=== PATIENT | female | born 1950 | race Caucasian/White ===

== ENCOUNTER → 2019-12-16 19:33 | Outpatient (ROUT) | payer MEDICARE, SELFPAY ==
[2019-12-16 20:19] LABS: Alanine Aminotransferase 21 IU/L (<35); Cholesterol 175 mg/dL (140-199); HDL Cholesterol 66 mg/dL (40-60); LDL Cholesterol Calculated 76 mg/dL (<100); Triglycerides 164 mg/dL (35-150)
== END ==
PROVIDERS: Visit Provider Internal Medicine
DX: E78.5 Hyperlipidemia, unspecified (principal)
CPT/HCPCS: 80061; 84460

== ENCOUNTER → 2020-01-22 12:21 | Outpatient (CLI) | payer MEDICARE, SELFPAY ==
--- NOTE | 2020-01-22 | DI.MRI.S_ITS ---
PROCEDURE: MR FOOT RT WO CON INDICATIONS: Post-traumatic osteoarthritis TECHNIQUE: Noncontrast sagittal T1 spin echo and T2 fast spin echo with fat saturation, long-axis T1 spin echo and T2 fast spin echo with fat saturation, short-axis T1 spin echo and T2 fast spin echo with fat saturation through the forefoot. COMPARISON: None. FINDINGS: Image quality: Excellent. Bones and joints: There is marrow edema present within the 3rd and 4th proximal metatarsal shafts. There is severe lesser tarsal metatarsal joint degeneration. Severe 1st MTP joint degeneration. Prominent dorsal osteophyte formation is present. There is associated subchondral marrow edema and joint effusion. Marrow signal intensity change in T2 hyperintensity within the medial and lateral hallux sesamoids. Questionable fracture line in both sesamoid seen on image 24/9, however this could be related to chronic bipartite appearance and recommend correlation to clinical history. Soft tissues: The visualized plantar foot muscles demonstrate normal signal and bulk. Visualized flexor and extensor tendons appear intact, without tenosynovitis. The distal insertions of the peroneus brevis and longus tendons appear intact. The principal Lisfranc ligament appears intact. Fluid between the 1st and 2nd metatarsal heads is present. IMPRESSION: Severe 1st MTP joint degeneration with prominent dorsal bulky osteophyte formation. This raises the possibility of hallux rigidus. Please correlate clinically to exam findings Mild marrow signal changes involving the medial and lateral hallux sesamoids suggesting nonspecific sesamoiditis (versus less likely fracture. Please see comment above). 1st-2nd intermetatarsal bursitis Marrow edema within the 3rd and 4th proximal metatarsal shafts, without discrete low signal fracture line. This could be due to early stress reaction. Please correlate clinically Elsewhere, diffuse degenerative changes in particular at the lesser tarsometatarsal joints. Dictated by: Rogerio Guidry M.D. on 01/24/2020 at 11:37 Approved by: Rogerio Guidry M.D. on 01/24/2020 at 12:06
== END ==
PROVIDERS: PCP Internal Medicine; Referring Provider Internal Medicine; Visit Provider Internal Medicine
DX: M19.171 Post-traumatic osteoarthritis, right ankle and foot (principal); M77.51 Other enthesopathy of right foot and ankle
CPT/HCPCS: 73718

== ENCOUNTER 2020-09-03 02:12 | Observation (INO) | payer MEDICARE, SELFPAY ==
[2020-09-03] VITALS (7 sets, daily range): BP systolic 110–152; BP diastolic 70–79; PULSE 59–71; RESP 14–18; TEMP 36.1–36.3; O2SAT 96–99; BMI 23.1
--- NOTE | 2020-09-03 02:23 | ED_ITS ---
HPI - General Adult General Chief complaint: Allergic Reaction Stated complaint: facial swelling Time Seen by Provider: 09/03/20 02:14 Source: patient Mode of arrival: EMS History of Present Illness HPI narrative: Patient is a 70-year-old female who arrives by EMS for evaluation of swelling of her lips. She arrived by BLS. She states that at approximately midnight she started noticing swelling on the right side of her cheek and in her upper lip and during that time it is just progressively worsened to include both of her lips. She is not on lisinopril. Has never had this happen to her in the past. She states she has had reactions to insect stings and bites in the past but does not remember being exposed anything like that currently. No problems swallowing. Her tongue is unremarkable. She is able to breathe without problem s. No rashes anywhere. Related Data Home Medications Medication Instructions Recorded Confirmed Align See Rx Instructions .ROUTE .COMPLEX 09/03/20 09/03/20 B-complex with vitamin C See Rx Instructions .ROUTE .COMPLEX 09/03/20 09/03/20 Bifidobacterium infantis 4 mg See Rx Instructions .ROUTE .COMPLEX 09/03/20 09/03/20 capsule (Align) Calcium + Vitamin D See Rx Instructions .ROUTE .COMPLEX 09/03/20 09/03/20 Women's Daily Multivitamin See Rx Instructions .ROUTE .COMPLEX 09/03/20 09/03/20 bupropion HCl 100 mg tablet,12 hr 100 mg PO BID 09/03/20 09/03/20 sustained-release co [id number] oil-omega 3-E See Rx Instructions .ROUTE .COMPLEX 09/03/20 09/03/20 krill [id number] See Rx Instructions .ROUTE .COMPLEX 09/03/20 09/03/20 levothyroxine 88 mcg tablet 88 mcg DAILY 09/03/20 09/03/20 rosuvastatin 5 mg tablet 2.5 mg DAILY 09/03/20 09/03/20 Allergies Allergy/AdvReac Type Severity Reaction Status Date / Time lactose AdvReac Mild Verified 09/03/20 02:42 Review of Systems Constitutional Constitutional: Denies fatigue and Denies fever(s) Eyes Eyes: Denies itchy eyes Comments: No vision problems with swelling around her eyes ENT Ears, Nose, Mouth, and Throat: Reports as per HPI, Reports lip swelling, Denies throat swelling and Denies tongue swelling Cardiovascular Comments: No chest pain Respiratory Respiratory: Denies wheezing Comments: No shortness of breath Gastrointestinal Comments: No abdominal pain nausea vomiting Musculoskeletal Musculoskeletal: Reports system reviewed and no additional complaints, except as documented Integumentary/Breasts Comments: No rashes Neurologic Neurologic: Reports system reviewed and no additional complaints, except as documented Psychiatric Psychiatric: Reports system reviewed and no additional complaints, except as documented Endocrine Endocrine: Denies fatigue Hematologic/Lymphatic On Anticoagulants: No Allergic/Immunologic Allergic/Immunologic: Denies urticaria, Denies itchy eyes, Reports lip swelling, Denies seasonal rhinorrhea, Denies throat swelling, Denies tongue swelling and Denies wheezing Patient History Medical History Hypothyroid Surgical History (Updated 09/03/20 @ 05:34 by NIA Lopez) History of esophageal hernia repair Social History Smoking Status: Never smoker Exam Initial Vital Signs Initial Vital Signs: Vital Signs Temperature 97 F L 09/03/20 02:14 Pulse Rate 71 09/03/20 02:14 Respiratory Rate 18 09/03/20 02:14 Blood Pressure 152/74 H 09/03/20 02:14 Pulse Oximetry 98 09/03/20 02:14 Const General: cooperative, healthy appearing, comfortable and well developed [facility] Head: normal to inspection Ears: hearing grossly normal bilaterally Nose: external nose normal Face and sinus: no erythema and edema bilaterally upper lip and lower lip Mouth: oral mucosae normal, tongue normal and moist mucous membranes Teeth and gingiva: dentition normal Throat: posterior oropharynx normal Eyes General: appearance normal, both eyes and all related structures Neck Neck: normal visual inspection Resp Effort & Inspection: normal respiratory effort Auscultation: clear to auscultation bilaterally Cardio Rate: regular rate Rhythm: regular rhythm GI Inspection: normal to inspection Back/Spine/Pelvis Back: normal to inspection Skin General: no rashes or lesions noted Neuro General: patient alert, patient awake and patient oriented x3 Extrem General: normal to inspection Psych Appearance: grossly normal and well kempt Course Orders Ordered: ED Orders 09/03/20 02:25 Basic Metabolic Panel Stat Complete Blood Count AUTO DIFF Stat 09/03/20 02:35 COVID19 - ADMIT (DIETETIC ASSISTANT swab/PCR) Stat Acetaminophen (Acetaminophen 325 Mg Tablet) 650 mg PO Q6HR PRN PRN Reason: Fever/Mild Pain (1-3) Diphenhydramine HCl (Diphenhydramine 50 Mg/Ml Vial) 50 mg IV Q6HR PRN PRN Reason: Angioedema Diphenhydramine HCl (Diphenhydramine 25 Mg Tablet) 50 mg PO Q6HR PRN PRN Reason: Itching Famotidine (Famotidine 20 Mg/2 Ml Vial) 20 mg IV NOW [facility] Last Admin: 09/03/20 02:29 Dose: 20 mg Documented by: REY Sodium Chloride (Normal Saline 0.9%) 1,000 mls @ 125 mls/hr IV CONT [facility] Last Admin: 09/03/20 02:29 Dose: 125 mls/hr Documented by: REY Naloxone HCl (Naloxone 0.4 Mg/Ml Vial) 0.2 mg IV Q2MIN PRN PRN Reason: Opiate Reversal Prednisone (Prednisone 20 Mg Tablet) 60 mg PO DAILY ALAN Discontinued Medications Diphenhydramine HCl (Diphenhydramine 50 Mg/Ml Vial) 25 mg IV NOW ONE Stop: 09/03/20 02:15 Last Admin: 09/03/20 02:29 Dose: 25 mg Documented by: REY Methylprednisolone (Methylprednisolone 125 Mg/2 Ml Vial) 125 mg IV NOW ONE Stop: 09/03/20 02:15 Last Admin: 09/03/20 02:29 Dose: 125 mg Documented by: REY Vital Signs Vital signs: Vital Signs - 8 hr 09/03/20 02:14 09/03/20 03:04 09/03/20 03:30 Temperature 97 F L Pulse Rate 71 61 61 Respiratory Rate 18 Blood Pressure 152/74 H Pulse Oximetry 98 99 99 Medical Decision Making Lab Data Lab results reviewed: Yes I reviewed the patient's lab results. Result diagrams: 09/03/20 02:25 09/03/20 02:25 Labs: Lab Results 09/03/20 09/03/20 09/03/20 Range/Units 02:25 02:25 02:35 WBC 5.8 (4.5-11.0) X10^3/uL RBC 4.20 (4.0-5.2) X10^6/uL Hgb 13.0 (12.0-16.0) g/dL Hct 39.4 (36-46) % MCV 93.9 (80-100) fL MCH 31.0 (26-34) PG MCHC 33.0 (30-36) % RDW 13.3 (11.6-14.8) % Plt Count 212 (150-400) X10^3/uL Neut % (Auto) 40.7 L (50-75) % Lymph % (Auto) 42.4 H (25-40) % [place] % (Auto) 10.3 (3-14) % Eos % (Auto) 5.6 H (2-4) % Baso % (Auto) 1.0 (0-2) % Neut # (Auto) 2400 (4301-0490) /uL Lymph # (Auto) 2500 (4484-8508) /uL [place] # (Auto) 600 (0-900) /uL Eos # (Auto) 300 (0-450) /uL Baso # (Auto) 100 (0-100) /uL Sodium 140 (137-145) mmol/L Potassium 4.2 (3.4-5.1) mmol/L Chloride 106 (98-107) mmol/L Carbon Dioxide 28 (22-32) mmol/L BUN 24 H (7-17) mg/dL Creatinine 0.80 (0.52-1.04) mg/dL Estimated GFR > 60.0 (>60) mL/min BUN/Creatinine Ratio 30.0 H (6-22) Glucose 97 (80-110) mg/dL Calcium 10.2 (8.4-10.2) mg/dL SARS-CoV-2 (PCR) Negative (Negative) MDM Narrative Medical decision making narrative: She does have swelling in both her upper and lower lips. It does not extend any further back into the oral cavity from that point. No problems control leg her secretions. Is talking without problems. Breathing without problems. Low suspicion for cellulitis. She was given Benadryl and Solu-Medrol in famotidine. Minimal if any improvement with these medications. During her observation here in the emergency department symptoms have not worsened. Given the nature of the angioedema patient does require admission to the hospital for an airway watch. I did discuss this with the patient she expressed understanding. Discussed the case with JODI guidry who will admit for further evaluation treatment. Discharge Plan Departure Patient Disposition: Admitted as Observation Clinical Impression: Angioedema Admit Date/Time: 09/03/20 03:55 Admit Provider: Gina Guidry
[2020-09-03] MEDS: diphenhydrAMINE 50 MG/ML VIAL 25 MG IV (02:29)
[2020-09-03] MEDS: FAMOTIDINE 20 MG/2 ML VIAL IV (02:29)
[2020-09-03] MEDS: SODIUM CHLORIDE 0.9% 1,000 ML 125 ML IV ×2 (02:29→05:38)
[2020-09-03] MEDS: methylPREDNISolone 125 MG/2 ML VIAL IV (02:29)
[2020-09-03 02:31] LABS: Add Manual Diff / Slide Review NO; Basophils Absolute Auto 100 /uL (0-100); Eosinophils Absolute Auto 300 /uL (0-450); Eosinophils Percent Auto 5.6 % (2-4); Hematocrit 39.4 % (36-46); Lymphocytes Absolute Auto 2500 /uL (1100-4500); Lymphocytes Percent Auto 42.4 % (25-40); Mean Corpuscular Volume 93.9 fL (80-100); Monocytes Absolute Auto 600 /uL (0-900); Monocytes Percent Auto 10.3 % (3-14); Neutrophils Absolute Auto 2400 /uL (1500-7000); Neutrophils Percent Auto 40.7 % (50-75); Platelet Count 212 X10^3/uL (150-400); Red Cell Distribution Width 13.3 % (11.6-14.8); White Blood Cell Count 5.8 X10^3/uL (4.5-11.0)
[2020-09-03 02:39] LABS: Blood Urea Nitrogen 24 mg/dL (7-17); Calcium 10.2 mg/dL (8.4-10.2); Carbon Dioxide 28 mmol/L (22-32); Chloride 106 mmol/L (98-107); Estimated Glomerular Filt Rate > 60.0 mL/min (>60); Glucose 97 mg/dL (80-110); HEMOLYSIS < 15 (0-50); Potassium 4.2 mmol/L (3.4-5.1); Sodium 140 mmol/L (137-145)
[2020-09-03 03:34] LABS: COVID19 - ADMIT (NP swab/PCR) Negative (Negative)
--- NOTE | 2020-09-03 05:16 | P.HP_ITS ---
History of Present Illness History of Present Illness Date Patient Seen: 09/03/20 Time Patient Seen: 05:16 Chief complaint: facial swelling Narrative: Bibi Arboleda is a 70 y.o. female with controlled hyperlipidemia and hypothyroidism was in her usual state of health when she was sitting down and eating pistacio nuts. She went into the bathroom to brush her teeth and noticed that her cheeks started to swell up followed by her lips. She does not have any atopic allergies, nor is she taking an malena-inhibitor. She then noticed that her lips began to feel funny and when she felt them with her hand realized they were swelling up as well. She called 911 who brought her to the ED. She denies eating anything different, though she had only been eating pistacios for 2 weeks. Denied taking malena inhibitors, new soaps or laundry detergents, or insect bite or poisonous plant exposures. Denies itching or involvement of other parts of her body. In the ED, she was administered IV benadryl, prevacid, and solumedrol. She was requested for obs as her swelling was not decreasing as quickly as expected. She is afebrile, blood pressure is 152/74, heart rate 61, respiratory rate 18, oxygen saturation 99% on room air, she weighs 69 kg with a BMI of 23. WBC is un remarkable, she does have elevated eosinophils of 5.6%, BMP is also unremarkable, COVID-19 PCR is negative. Patient History Medical History (Updated 09/03/20 @ 05:43 by NIA Lopez) Anxiety History of esophageal stricture HLD (hyperlipidemia) Hypothyroid Surgical History (Updated 09/03/20 @ 05:34 by NIA Lopez) History of esophageal hernia repair Comment: Esophogeal stricture release Family & Social History Family History (Updated 09/03/20 @ 05:44 by NIA Lopez) Mother Myocardial infarct Father Surgical complication Safety & Behavioral: Feels Safe in Current Yes Environment Been Physically Hurt or No Threatened By a Person Tobacco & Substance use: Smoking Status Never smoker alcohol intake frequency 0-2 drinks per day Substance Use Type does not use Meds Home Medications and Allergies Home Medications Medication Instructions Recorded Confirmed Type Align See Rx Instructions .ROUTE .COMPLEX 09/03/20 09/03/20 History B-complex with vitamin C See Rx Instructions .ROUTE .COMPLEX 09/03/20 09/03/20 History Bifidobacterium infantis 4 mg See Rx Instructions .ROUTE .COMPLEX 09/03/20 09/03/20 History capsule (Align) Calcium + Vitamin D See Rx Instructions .ROUTE .COMPLEX 09/03/20 09/03/20 History Women's Daily Multivitamin See Rx Instructions .ROUTE .COMPLEX 09/03/20 09/03/20 History bupropion HCl 100 mg tablet,12 hr 100 mg PO BID 09/03/20 09/03/20 History sustained-release co [id number] oil-omega 3-E See Rx Instructions .ROUTE .COMPLEX 09/03/20 09/03/20 History krill [id number] See Rx Instructions .ROUTE .COMPLEX 09/03/20 09/03/20 History levothyroxine 88 mcg tablet 88 mcg DAILY 09/03/20 09/03/20 History rosuvastatin 5 mg tablet 2.5 mg DAILY 09/03/20 09/03/20 History Allergies Allergy/AdvReac Type Severity Reaction Status Date / Time lactose AdvReac Mild Verified 09/03/20 02:42 Review of Systems Review of Systems ROS: Yes All systems reviewed with the patient and are negative except as otherwise documented Exam Vital Signs (past 8 hours): - 09/03/20 02:14 09/03/20 03:04 09/03/20 03:30 Temperature 97 F L Pulse Rate 71 61 61 Respiratory Rate 18 Blood Pressure 152/74 H Pulse Oximetry 98 99 99 Oxygen Delivery Method Room Air Narrative Exam Narrative: Gen: Alert, oriented, well-developed 70 y.o. female, NAD HEENT: normocephalic, atraumatic, left cheek is swollen, conjunctiva clear, sclera non-icteric, significant swelling of the upper and lower lips, oral mucosa pink and moist Neck: supple, full ROM, no JVD, trachea is midline Resp: Lungs CTA, non-labored breathing CV: RRR, no murmur or rubs Abd: soft, non-tender, normoactive BTs Skin: no lesions or rashes, dry and intact Neuro: Alert and oriented X 4 w/no focal deficits. Speech clear and coherent. Extremities: moves all 4 extremities, is ambulatory, negative Alexander?s sign Psyche: normal mood and affect Objective Labs Result Diagrams: 09/03/20 02:25 09/03/20 02:25 Labs: Laboratory Results - last 24 hr 09/03/20 09/03/20 09/03/20 02:25 02:25 02:35 WBC 5.8 RBC 4.20 Hgb 13.0 Hct 39.4 MCV 93.9 MCH 31.0 MCHC 33.0 RDW 13.3 Plt Count 212 Neut % (Auto) 40.7 L Lymph % (Auto) 42.4 H [place] % (Auto) 10.3 Eos % (Auto) 5.6 H Baso % (Auto) 1.0 Neut # (Auto) 2400 Lymph # (Auto) 2500 [place] # (Auto) 600 Eos # (Auto) 300 Baso # (Auto) 100 Sodium 140 Potassium 4.2 Chloride 106 Carbon Dioxide 28 BUN 24 H Creatinine 0.80 Estimated GFR > 60.0 BUN/Creatinine Ratio 30.0 H Glucose 97 Calcium 10.2 SARS-CoV-2 (PCR) Negative Assessment & Plan Assessment & Plan narrative: Ann Marie Arboleda will be observed for continued swelling associated with angioedema. 1. Angioedema, acute and present on admission * IV and PO benadryl 50 mg q 6 hours as needed for swelling * prednisone 60 mg daily with tapor anticipated with discharge 2. Hypothyroidism, chronic * Continue home dose of levothyroxine 88 mcg daily 3. Hyperlipidemia, chronic * Continue home dose of rosuvastatin 2.5 mg po daily 4. Anxiety, chronic * Continue home dose of bupropion, 100 mg po bid VTE Prophylaxis: Wells risk score 0 X Bilateral SCDs Patient is placed into observation as her stay is not expected to exceed 2 midnights. FEN: IV fluids: NS at 100 ml/hour, diet: heart healthy, labs: CBC, BMP, Mag Code status: DNR, okay to intubate. This was discussed as the angioedema may present a threat to her airway if it progresses. The patient who identifies friend Gris Robles as her surrogate and POA. I have utilized all available resources (patient, family member, internal and external medical records) at the time of admission to identify the patient?s current home medications that should be continued or held. COVID-19 COVID-19 status: Negative Result date/Date tested (Pos, Neg/Pending): 07/25/21 Scores Wells' Criteria for PE Clinical signs and symptoms of DVT: No PE is #1 Dx or equally likely: No Heart rate > 100: No Immobilization at least 3 days or surg in previous 4 weeks: No History of PE or DVT: No Hemoptysis: No Malignancy w/Treatment within 6 months or palliative: No Wells' PE Score total: 0 Quality VTE Deep Vein Thrombosis/Pulmonary Embolism Present on Admission: No MIPS - Admit I confirm the patient?s Advance Care Plan is present, Code status is documented, Surrogate decision maker is in patient?s record [If Yes, STOP here]: Yes
[2020-09-03] MEDS: LEVOTHYROXINE 88 MCG TABLET PO (06:20)
[2020-09-03] MEDS: diphenhydrAMINE 25 MG TABLET 50 MG PO (08:40)
[2020-09-03] MEDS: predniSONE 20 MG TABLET 60 MG PO (08:40)
[2020-09-03] MEDS: buPROPion SR 100 MG TAB PO (08:40)
--- NOTE | 2020-09-03 09:17 | P.DS_ITS ---
History of Present Illness History of Present Illness Date Patient Seen: 09/03/20 Time Patient Seen: 09:18 Chief complaint: facial swelling Narrative: Per Gina Guidry, ANRP: Bibi Arboleda is a 70 y.o. female with controlled hyperlipidemia and hypothyroidism was in her usual state of health when she was sitting down and eating pistacio nuts. She went into the bathroom to brush her teeth and noticed that her cheeks started to swell up followed by her lips. She does not have any atopic allergies, nor is she taking an malena-inhibitor. She then noticed that her lips began to feel funny and when she felt them with her hand realized they were swelling up as well. She called 911 who brought her to the ED. She denies eating anything different, though she had only been eating pistacios for 2 weeks. Denied taking malena inhibitors, new soaps or laundry detergents, or insect bite or poisonous plant exposures. Denies itching or involvement of other parts of her body. In the ED, she was administered IV benadryl, prevacid, and solumedrol. She was requested for obs as her swelling was not decreasing as quickly as expected. She is afebrile, blood pressure is 152/74, heart rate 61, respiratory rate 18, oxygen saturation 99% on room air, she weighs 69 kg with a BMI of 23. WBC is unremarkable, she does have elevated eosinophils of 5.6%, BMP is also unremarkable, COVID-19 PCR is negative. Discharge Providers Provider Date of admission: 09/03/20 03:55 Discharge Date: 09/03/20 Primary care physician: Kimi Burnette MD Discharge provider: Wagner Simpson DO Summary Hospital Course Discharge Diagnosis: 1. Angioedema, acute and present on admission 2. Hypothyroidism, chronic 3. Hyperlipidemia, chronic 4. Anxiety, chronic Hospital Course: This is a 70-year-old female with a past medical history of hyperlipidemia, hypothyroidism, and anxiety who was admitted with angioedema and significant swelling of her face. She was monitored overnight for evidence of progression given concern for her airway. The following morning after admission the patient's lip and facial swelling had markedly improved after initiation of steroids, epinephrine given initially, and Benadryl. She was able to tolerate a diet without any difficulty swallowing the following morning as well. She will be discharged on a short steroid taper, and it is unclear what exactly caused her angioedema but I would recommend follow-up with an customer quality engineer as an outpatient. She was given a prescription for an epi-pen as well in the event that this may be an allergic reaction. Exam Vital Signs (past 8 hours): - 09/03/20 02:14 09/03/20 03:04 09/03/20 03:30 Temperature 97 F L Pulse Rate 71 61 61 Respiratory Rate 18 Blood Pressure 152/74 H Pulse Oximetry 98 99 99 09/03/20 04:10 09/03/20 07:26 Temperature 97.0 F L Pulse Rate 62 Respiratory Rate 16 Blood Pressure 141/79 H Pulse Oximetry 97 97 Oxygen Delivery Method Room Air Oxygen Flow Rate 0 Narrative Exam Narrative: Gen: Alert, oriented, well-developed 70 y.o. female, NAD HEENT: normocephalic, atraumatic,improved lip and facial swelling, conjunctiva clear, sclera non-icteric, oral mucosa pink and moist Neck: supple, full ROM, no JVD, trachea is midline Resp: Lungs CTA, non-labored breathing CV: RRR, 3/6 systolic murmur no rubs or gallops. Abd: soft, non-tender, normoactive BTs Skin: no lesions or rashes, dry and intact Neuro: Alert and oriented X 4 w/no focal deficits. Speech clear and coherent. Extremities: moves all 4 extremities, is ambulatory Psyche: normal mood and affect Objective Labs Result Diagrams: 09/03/20 02:25 09/03/20 02:25 Labs: Laboratory Results - last 24 hr 09/03/20 09/03/20 09/03/20 02:25 02:25 02:35 WBC 5.8 RBC 4.20 Hgb 13.0 Hct 39.4 MCV 93.9 MCH 31.0 MCHC 33.0 RDW 13.3 Plt Count 212 Neut % (Auto) 40.7 L Lymph % (Auto) 42.4 H [place] % (Auto) 10.3 Eos % (Auto) 5.6 H Baso % (Auto) 1.0 Neut # (Auto) 2400 Lymph # (Auto) 2500 [place] # (Auto) 600 Eos # (Auto) 300 Baso # (Auto) 100 Sodium 140 Potassium 4.2 Chloride 106 Carbon Dioxide 28 BUN 24 H Creatinine 0.80 Estimated GFR > 60.0 BUN/Creatinine Ratio 30.0 H Glucose 97 Calcium 10.2 SARS-CoV-2 (PCR) Negative PFSH Medical History (Updated 09/03/20 @ 05:43 by NIA Lopez) Anxiety History of esophageal stricture HLD (hyperlipidemia) Hypothyroid Surgical History (Updated 09/03/20 @ 05:34 by NIA Lopez) History of esophageal hernia repair Family History (Updated 09/03/20 @ 05:44 by NIA Lopez) Mother Myocardial infarct Father Surgical complication Social History household members: friend(s) Smoking Status: Never smoker Discharge Plan Discharge Plan Patient Disposition: Home Provider Discharge Comment: You were admitted to the hospital with swelling of your face and lips. This improved with steroids, Benadryl, and antihistamines. Please keep Benadryl around at home, and this can be used if needed over the next few days. Please continue steroid taper which has been sent to the pharmacy. Please follow-up with her primary care provider in the next week or 2. I have also sent a prescription for an epipen if swelling happens again. Please take epipen if swelling recurs then call EMS. I would recommend follow up with an customer quality engineer as well. Discharge orders & Medications Prescriptions: New prednisone 10 mg tablet See Rx Instructions .ROUTE .COMPLEX Qty: 14 RF: 0 epinephrine 0.3 mg/0.3 mL auto-injector 0.3 mg IM Q5-15M PRN (Reason: anaphylaxis) Qty: 2 RF: 0 Continued bupropion HCl 100 mg tablet sustained-release 12 hr 100 mg PO BID RF: 0 levothyroxine 88 mcg tablet 88 mcg DAILY RF: 0 rosuvastatin 5 mg tablet 2.5 mg DAILY RF: 0 Align 4 mg Capsule See Rx Instructions .ROUTE .COMPLEX RF: 0 Women's Daily Multivitamin See Rx Instructions .ROUTE .COMPLEX RF: 0 co [id number] oil-omega 3-E See Rx Instructions .ROUTE .COMPLEX RF: 0 krill [id number]-epa See Rx Instructions .ROUTE .COMPLEX RF: 0 Align See Rx Instructions .ROUTE .COMPLEX RF: 0 Calcium + Vitamin D See Rx Instructions .ROUTE .COMPLEX RF: 0 B-complex with vitamin C See Rx Instructions .ROUTE .COMPLEX RF: 0 Follow up/Referrals: Kimi Burnette MD [Primary Care Provider] - Diet/Activity/Treatments Diet: Diet as Tolerated Activity: As tolerated Discharge Data Primary Care Provider: Kimi Burnette Attending Provider: Gina Guidry VTE Deep Vein Thrombosis/Pulmonary Embolism Present on Admission: No
--- NOTE | 2020-09-03 10:39 | PC.NURSE ---
Discharge note: Patient awake, alert, and pleasantly cooperative. 98% on RA, no difficulty swallowing, no drooling noted, speaking in full sentences. Lungs clear. Upper lip with minimal swelling, per patient it has significantly improved. Tolerated regular breakfast without any issues. Discharged home per MD order, discussed importance of F/U with PMD, new prescribed medications and safe use, signs of worsening symptoms. Patient verbalized understanding of instructions. Ambulating in room independently. Home via private vehicle accompanied by friend.
--- NOTE | 2020-09-03 13:25 | CM.DANOTE ---
DCP: assessment: note. Case received and discussed in Team Rounds. Dr. Simpson noted that pt admitted with angioedema with arrival early this morning 4AM. He said pt stable for d/c to home. Went after Rounds to check in with pt and she had aready completed the d/c process with KATIE Marie and had left for home. Payer: Medicare PCP Kimi Burnette Admission status: in review
== END 2020-09-03 11:00 | disposition home or self-care (01) ==
LOC: ED 03:35 → AC 03:55
PROVIDERS: Admitting Provider Nurse Practitioner Family; Emergency Provider Emergency Medicine; PCP Internal Medicine; Referring Provider Emergency Medicine; Visit Provider Nurse Practitioner Family
DX: T78.3XXA Angioneurotic edema, initial encounter (principal); E78.5 Hyperlipidemia, unspecified; E03.9 Hypothyroidism, unspecified; F41.9 Anxiety disorder, unspecified; Z20.822 Contact with and (suspected) exposure to COVID-19
CPT/HCPCS: 36415; 80048; 85025; 87635; 96361; 96374; 96375; 99284; C9803; G0378; J1200; J2930

== ENCOUNTER 2022-06-06 09:22 | Outpatient (CLI) | payer MEDICARE, SELFPAY ==
[2020-09-03 05:27] VITALS: BMI 23.1
--- NOTE | 2022-06-06 09:25 | DI.RAD.S_ITS ---
PROCEDURE: PAIN PERIPHERAL NRV BLK OTHER INDICATIONS: CLUNEAL NEURALGIA COMPARISON: None. FINDINGS: Fluoroscopic spot filming was performed to verify placement of needles for nerve injection, as labeled on the films. Contrast was injected. IMPRESSION: Fluoroscopic images for nerve block. Please see procedure note for full details. Dictated by: Anson Abdi M.D. on 06/06/2022 at 12:28 Approved by: Anson Abdi M.D. on 06/06/2022 at 12:29
[2022-06-06 09:30] VITALS: BP 160/72; PULSE 61; RESP 18; TEMP 36.2; O2SAT 98
--- NOTE | 2022-06-06 09:32 | P.PCN_ITS ---
Date/Time/Diagnoses Date of procedure: 06/06/22 Time of procedure: 10:00 Procedure Notes Physician: Levon Gardner Total Fluoroscopy time (seconds): 8 Total sedation minutes: 0 Procedure in detail & Post-procedure care: Left Cluneal Nerve Injection Indications: Bibi is presenting for treatment of cluneal neuralgia with low back and buttock pain. Preoperative diagnosis: Left cluneal neuralgia Postoperative diagnosis: Same Focused Examination: Ax3 Mood and affect are normal Vital Signs: VSS ASA: 2 Consent: Following review of allergies and potential side effects/complications, including, but not necessarily limited to, infection, allergic reaction, local tissue breakdown, stroke, temporary or permanent nerve injury, paralysis, and possible , the patient indicated that they understood and agreed to proceed.? An informed consent document was signed by the patient, witnessed by a nurse and placed in the patient's chart.? Additionally, other treatment options including medications and physical therapy were reviewed with the patient. All questions were answered. Site was then marked. Anesthesia: Local Position: Prone Monitoring: NIBP, Pulse oximetry, 3 lead EKG Needle used: 25 gauge, 3.5 inch spinal needle x3 Contrast: Isovue 300-M 3mL Injectate: Depomedrol 40mg with 5 mL 0.5% Bupivacaine - 2 mL per injection site Technique: The skin was prepped with chloraprep and then draped in a sterile fashion. Time out was performed as per protocol. Oxygen applied via NC. Midline of the spine was identified using fluoroscopy. The skin was measured 8 cm from midline and sterile roxi placed on the skin delineating the superior aspect of the iliac crest on the left. Two moon were subsequently made 2 cm medial and 2 cm lateral for a total of 3 target sites. Skin and subcutaneous structures of the needle entry sites were then infiltrated with 5 mL of lidocaine 1%. Under AP and contralateral oblique control, the needle was guided to the superior aspect of the iliac crest in the 3 locations. Contrast was injected and the spread was consistent with appropriate needle location. There was no evidence for intravascular uptake. After negative aspiration, the above-mentioned injectate was then slowly administered and the needles withdrawn. The patient expressed no unusual discomfort or paresthesias during needle positioning or injection. Band- Aids applied to injection sites. EBL: less than 1 ml Complications: None Post Procedure: Patient was taken to the recovery and monitored. The patient was provided a Pain Log to continue to record the patient's response to the target- specific procedure prior to the patient's follow-up visit with the referring physician. Patient was stable upon discharge. Detailed post procedure instructions were provided. Patient was asked to call in the event of worsening pain, fever, weakness, numbness or bladder/bowel incontinence.
[2022-06-06 09:45] VITALS: BP 177/74; PULSE 69; RESP 16; O2SAT 98
[2022-06-06] MEDS: BUPIVACAINE 0.5% (PF) 30 ML VIAL 5 ML INJ (09:46)
[2022-06-06] MEDS: IOPAMIDOL 15 ML VIAL 3 ML INJ (09:46)
[2022-06-06] MEDS: methylPREDNISolone acet DEPO 40 MG/ML VIAL IM (09:47)
[2022-06-06 09:50] VITALS: BP 154/72; PULSE 71; RESP 16; O2SAT 99
[2022-06-06 09:58] VITALS: BP 160/82; PULSE 67; RESP 20; O2SAT 97
== END 2022-06-06 10:08 | disposition home or self-care (01) ==
LOC: RAD 09:25
PROVIDERS: PCP Student in an Organized Health Care Education/Training Program; Referring Provider Anesthesiology; Visit Provider Anesthesiology
DX: G58.8 Other specified mononeuropathies (principal)
CPT/HCPCS: 64450; J1030

== ENCOUNTER → 2022-06-27 13:16 | Outpatient (CLI) | payer MEDICARE, SELFPAY ==
[2020-09-03 05:27] VITALS: BMI 23.1
--- NOTE | 2022-06-27 13:17 | DI.RAD.S_ITS ---
PROCEDURE: XR LUMBAR SPINE MIN 4V INDICATIONS: Chronic low back pain, RLE spasms TECHNIQUE: 5 views of the lumbar spine were acquired, including bilateral oblique views. COMPARISON: None. FINDINGS: Bones: 5 nonrib-bearing vertebrae are present. There is normal bony alignment. No vertebral body compression fractures. No suspicious bony lesions. Rightward curvature of the thoracolumbar spine with a Chan angle of 22?. Disc space narrowing with endplate degenerative changes and intradiscal gas at L5-S1. Facet arthrosis in the lower lumbar spine. Soft tissues: Overlying bowel gas pattern is normal. No suspicious soft tissue calcifications. Oblique images: No pars defects. IMPRESSION: 1. Degenerative changes of the lumbar spine with facet arthrosis. 2. Degenerative disc disease at L5-S1. 3. No acute abnormality. 4. Dextroscoliosis of the thoracolumbar spine. Dictated by: Vj Greenwood M.D. on 06/27/2022 at 14:22 Approved by: Vj Greenwood M.D. on 06/27/2022 at 14:24
== END ==
PROVIDERS: PCP Student in an Organized Health Care Education/Training Program; Referring Provider Anesthesiology; Visit Provider Anesthesiology
DX: M54.50 Low back pain, unspecified (principal); M47.816 Spondylosis without myelopathy or radiculopathy, lumbar region; M51.37 Other intervertebral disc degeneration, lumbosacral region; M41.85 Other forms of scoliosis, thoracolumbar region; M62.838 Other muscle spasm; G89.29 Other chronic pain; Z68.21 Body mass index [BMI] 21.0-21.9, adult
CPT/HCPCS: 72110; 99213

== ENCOUNTER → 2022-07-03 12:05 | Outpatient (CLI) | payer MEDICARE, SELFPAY ==
[2020-09-03 05:27] VITALS: BMI 23.1
--- NOTE | 2022-07-03 12:06 | DI.RAD.S_ITS ---
Bone Density Report Name: ALIX RENEE Age: 72 Sex: Female Ethnicity: White Date of : 1950 Indication: postmenopausal; screening for osteoporosis; secondary osteoporosis; Referring Provider: ZAN YA Study: Bone densitometry was performed. Exam Date: July 03, 2022 Accession number: [id number] Bone Density: Region BMD T-score Z-score Classification AP Spine(L1-L4) 1.182 1.2 3.5 Normal Femoral Neck (Left) 0.795 -0.5 1.4 Normal Total Hip (Left) 0.904 -0.3 1.3 Normal Femoral Neck (Right) 0.680 -1.5 0.4 Osteopenia Total Hip (Right) 0.775 -1.4 0.2 Osteopenia Total Hip Mean 0.839 -0.9 0.8 Normal World Health Organization criteria for BMD impression classify patients as: Normal (T-score at or above -1.0), Osteopenia (T-score between -1.0 and -2.5), or Osteoporosis (T-score at or below -2.5). 10-year Fracture Risk(1): Major Osteoporotic Fracture 9.6% Hip Fracture 1.7% Reported Risk Factors: [place] (), Neck BMD=0.680, BMI=21.6, secondary osteoporosis (1) FRAX(R) Version 3.08. Fracture probability calculated for an untreated patient. Fracture probability may be lower if the patient has received treatment. Impression: The patient has low bone mass, based on the Right Femoral Neck T-score. The patient has an estimated ten-year risk of hip fracture of 1.7% and an estimated ten-year risk of major fracture of 9.6%, based on the WHO FRAX algorithm. Discussion: BONE DENSITY IS LOW AT ONE OR MORE SKELETAL SITES. This patient's lowest T-score is low at one or more skeletal sites. It meets the World Health Organization's (WHO) criteria for low bone mass (T-score between -1.0 and -2.5). The patient's 10-year risk of fracture as calculated by FRAX is less than the threshold where pharmacological therapy is recommended by the National Osteoporosis Foundation (NOF). However, all treatment decisions require clinical judgment and consideration of individual patient factors, including patient preferences, comorbidities, previous drug use, risk factors not captured in the FRAX model (e.g., frailty, falls, vitamin D deficiency, increased bone turnover, interval significant decline in bone density) and possible under or overestimation of fracture risk by FRAX. The patient should follow a healthful lifestyle (good nutrition with adequate calcium and vitamin D, and appropriate weight-bearing exercise). Follow-Up: Consider repeating this study in 2 to 3 years to reassess this patient's status, or sooner if there is some new clinical indication. Reported by: ELI CARVER M.D. on 07/03/2022 3:27:00 PM.
--- NOTE | 2022-07-03 12:06 | DI.MRI.S_ITS ---
PROCEDURE: MR LUMBAR SPINE WO CON INDICATIONS: Chronic low back pain, RLE spasms TECHNIQUE: Noncontrast sagittal T1 spin echo and T2 fast echo, sagittal STIR, and T2 fast spin echo through the lumbar spine. In cases with scoliosis, additional coronal T2 fast spin echo may be performed. COMPARISON: [facility], CR, XR LUMBAR SPINE MIN 4V, 06/27/2022, 13:18. FINDINGS: Image quality: Excellent. Alignment and Curvature: Mild dextrocurvature centered at T12. Trace retrolisthesis of T12 on L1. Bone Marrow: Marrow is of normal overall signal. No acute vertebral body compression fractures. Spinal Cord: Conus medullaris terminates at the L1 level. Visualized cord demonstrates normal signal and size. Paraspinous Soft Tissues: No paravertebral masses. T12-L1: Severe disc height loss. Diffuse disc bulge. Facet hypertrophy. No canal stenosis or foraminal stenosis. L1-L2: Disc bulge. Facet hypertrophy. No canal stenosis or foraminal stenosis. L2-L3: Disc bulge. Facet hypertrophy. No canal stenosis or foraminal stenosis. L3-L4: Disc bulge. Facet hypertrophy. [id number] right foraminal narrowing. L4-L5: Facet hypertrophy, right greater than left. No canal stenosis or foraminal stenosis. L5-S1: Severe disc height loss. Diffuse disc bulge. Facet hypertrophy. No canal stenosis. Moderate to severe right foraminal narrowing and severe left foraminal narrowing with bilateral foraminal L5 nerve root impingement. IMPRESSION: 1. Multilevel facet arthropathy. 2. No central canal stenosis. 3. At L5-S1, there is moderate to severe right foraminal narrowing and severe left foraminal narrowing with bilateral foraminal L5 nerve root impingement. Dictated by: Cory Ortiz M.D. on 07/03/2022 at 15:37 Approved by: Cory Ortiz M.D. on 07/03/2022 at 15:41
== END ==
PROVIDERS: PCP Internal Medicine; Referring Provider Internal Medicine; Visit Provider Internal Medicine
DX: M54.50 Low back pain, unspecified (principal); N95.1 Menopausal and female climacteric states; G89.29 Other chronic pain; R25.2 Cramp and spasm; M12.9 Arthropathy, unspecified
CPT/HCPCS: 72148; 77080

== ENCOUNTER 2022-07-17 13:06 | Outpatient (CLI) | payer MEDICARE, SELFPAY ==
[2020-09-03 05:27] VITALS: BMI 23.1
[2022-07-17] VITALS (8 sets, daily range): BP systolic 128–158; BP diastolic 70–83; PULSE 64–68; RESP 14–19; TEMP 36.5; O2SAT 97–98
--- NOTE | 2022-07-17 13:07 | DI.RAD.S_ITS ---
PROCEDURE: PAIN L INTERLAMINAR/CAUDAL INJ INDICATIONS: SPONDYLOSIS COMPARISON: [facility], MR, MR LUMBAR SPINE WO CON, 07/03/2022, 12:35. FINDINGS: Fluoroscopic spot filming was performed to verify placement of a spinal needle at the L5-S1 level, as labeled on the films. Appropriate location of the needle tip was confirmed by injection of iodinated contrast. IMPRESSION: No significant intraprocedural abnormality. Dictated by: Ramon Mary M.D. on 07/17/2022 at 14:50 Approved by: Ramon Mary M.D. on 07/17/2022 at 14:51
[2022-07-17] MEDS: MIDAZOLAM 2 MG/2 ML VIAL 1 MG IV (13:26)
[2022-07-17] MEDS: BUPIVACAINE 0.25% (PF) VIAL 5 ML INJ (13:28)
[2022-07-17] MEDS: IOPAMIDOL 15 ML VIAL 3 ML INJ (13:29)
[2022-07-17] MEDS: DEXAMETHASONE 10 MG/ML VIAL 20 MG INJ (13:29)
--- NOTE | 2022-07-17 15:05 | P.PCN_ITS ---
Date/Time/Diagnoses Date of procedure: 07/17/22 Time of procedure: 11:30 Procedure Notes Physician: Levon Gardner Total Fluoroscopy time (seconds): 16 Total sedation minutes: 12 Procedure in detail & Post-procedure care: L5-S1 Interlaminar Epidural Steroid Injection Indications: Bibi is presenting for treatment of lumbar radiculopathy with low back and leg pain. Preoperative diagnosis: Lumbar radiculopathy Postoperative diagnosis: Same Focused Examination: Ax3 Mood and affect are normal Vital Signs: VSS ASA: 2 Consent: Following review of allergies and potential side effects/complications, including, but not necessarily limited to, infection, allergic reaction, local tissue breakdown, stroke, temporary or permanent nerve injury, paralysis, and possible , the patient indicated that they understood and agreed to pr oceed.? An informed consent document was signed by the patient, witnessed by a nurse and placed in the patient's chart.? Additionally, other treatment options including medications and physical therapy were reviewed with the patient. All questions were answered. Site was then marked. Anesthesia: After review of previous anesthetic history and IV conscious sedation, the patient was deemed safe to proceed with today's procedure with IV conscious sedation. IV sedation was accomplished with midazolam 1 mg administered by the RN after order by Dr. Gardner. Sedation was titrated to patient comfort during the course of the procedure. Patient remained responsive to all verbal commands. Position: Prone Monitoring: NIBP, Pulse oximetry, 3 lead EKG Needle used: 18 G 3.5? Tuohy Contrast: Isovue 300M Injectate: Dexamethasone 15 mg with 0.25% Bupivacaine 1.5 mL Technique: The skin was prepped with chloraprep and then draped in a sterile fashion. Time out was performed as per protocol. Oxygen applied via NC. Skin and subcutaneous structures of the needle entry site was then infiltrated with 3 mL of lidocaine 1%. Under AP, lateral and contralateral oblique fluoroscopic control, the Tuohy needle was guided into the L5-S1 epidural space. The space was accessed with loss of resistance technique. Isovue 300M was then injected and the spread was consistent with the epidural space. There was no evidence for intravascular or intrathecal uptake. Test injection was performed with 2 cc 1% lidocaine. There was no evidence of intrathecal or intravascular uptake. After negative aspiration, the above-mentioned injectate was then slowly administered and the needle withdrawn. The patient expressed no unusual discomfort or paresthesias during the injection. Band-Aids applied to injection sites. EBL: less than 1 ml Complications: None Post Procedure: Patient was taken to the recovery and monitored. The patient was provided a Pain Log to continue to record the patient's response to the target- specific procedure prior to the patient's follow-up visit with the referring physician. Patient was stable upon discharge. Detailed post procedure instructions were provided. Patient was asked to call in the event of worsening pain, fever, weakness, numbness or bladder or bowel incontinence.
== END 2022-07-17 14:07 | disposition home or self-care (01) ==
LOC: RAD 13:07
PROVIDERS: PCP Internal Medicine; Referring Provider Anesthesiology; Visit Provider Anesthesiology
DX: M54.16 Radiculopathy, lumbar region (principal)
CPT/HCPCS: 62323; 99152; J1100; J2250; J3490

== ENCOUNTER 2022-09-11 12:28 | Outpatient (CLI) | payer MEDICARE, SELFPAY ==
[2020-09-03 05:27] VITALS: BMI 23.1
--- NOTE | 2022-09-11 12:30 | DI.RAD.S_ITS ---
PROCEDURE: PAIN L/SI FACET INJ/BLK 1STL INDICATIONS: SPONDYLOSIS COMPARISON: [facility], XA, PAIN L INTERLAMINAR/CAUDAL INJ, 07/17/2022, 13:28. FINDINGS: Fluoroscopic spot filming was performed to verify placement of spinal needles on the left at the L3, L4, and L5 levels, as labeled on the films. Appropriate location of the needle tips was confirmed by injection of iodinated contrast. IMPRESSION: Intraprocedural examination demonstrating appropriate positions of the needles. Dictated by: Ramon Mary M.D. on 09/11/2022 at 13:00 Approved by: Ramon Mary M.D. on 09/11/2022 at 13:00
[2022-09-11 12:47] VITALS: BP 137/86; PULSE 63; RESP 16; TEMP 36.5; O2SAT 98
[2022-09-11 13:06] VITALS: BP 137/76; PULSE 65; RESP 22; O2SAT 97
[2022-09-11 13:12] VITALS: BP 140/78; PULSE 68; RESP 21; O2SAT 99
[2022-09-11] MEDS: IOPAMIDOL 15 ML VIAL 3 ML INJ (13:14)
[2022-09-11] MEDS: BUPIVACAINE 0.5% (PF) 10 ML VIAL 5 ML INJ (13:14)
--- NOTE | 2022-09-11 13:19 | P.PCN_ITS ---
Date/Time/Diagnoses Date of procedure: 09/11/22 Time of procedure: 13:00 Procedure Notes Physician: Levon Gardner Total Fluoroscopy time (seconds): 11 Total sedation minutes: 0 Procedure in detail & Post-procedure care: Left L3, 4, 5 Lumbar Medial Branch Blocks Indications: Bibi is presenting for treatment of lumbar spondylosis with low back pain. Preoperative diagnosis: Left lumbar spondylosis Postoperative diagnosis: Same Pre-procedure History: Patient demonstrates today moderate to severe non- radicular back pain without neurologic deficit aggravated by hyperextension yes Back pain greater than leg pain? yes Patient today has tenderness over the suspected joint(s) yes History of post-traumatic injury? no Hypertrophic arthropathy yes Back pain associated with suspected motion segment instability, hypermobility or pseudoarthrosis no Pre-testing pain score (VAS): 3/10 Focused Examination: Ax3 Mood and affect are normal Vital Signs: VSS Consent: Following review of allergies and potential side effects/complications, including, but not necessarily limited to, infection, allergic reaction, local tissue breakdown, stroke, temporary or permanent nerve injury, paralysis, and possible , the patient indicated that they understood and agreed to proceed.? An informed consent document was signed by the patient, witnessed by a nurse and placed in the patient's chart.? Additionally, other treatment options including medications and physical therapy were reviewed with the patient. All questions were answered. Site was then marked. Anesthesia: Local Position: Prone Monitoring: NIBP, Pulse oximetry, 3 lead EKG Needle used: 22 ga 3.5 inch spinal needle Contrast: Isovue 300M Injectate: 0.5% bupivacaine 1 cc per site Procedure: The patient was brought into the procedure room and positioned into the prone position. Skin was prepped with a Chloraprep solution, allowed to air dry, and then draped in sterile fashion.? The left L4-5 and L5-S1 facet joints were visually identified with fluoroscopy. Lidocaine 1% was used to anesthetize the skin over each target destination with a 25ga needle. A 22 ga, 3.5 inch spinal needle was advanced to the location of the medial branch at the junction of the superior articular process and the transverse process at left L4,5 using intermittent fluoroscopy in the AP view. Isovue 300M contrast 0.2ml was injected at each level outlining the medial borders for each level and the base of the SAP of the sacrum in the AP and lateral views. There was no evidence of vascular or intrathecal uptake. The above injectate was slowly injected at each target destination. Post Procedure: Patient was taken to the recovery and monitored. The patient was provided a Pain Log to continue to record the patient's response to the target- specific procedure prior to the patient's follow-up visit with the referring physician. Patient was stable upon discharge. Detailed post procedure instructions were provided. Patient was asked to call in the event of worsening pain, fever, weakness, numbness or bladder or bowel incontinence. Postoperatively, today patient demonstrates the following changes with hyperextension and with tenderness over the suspected joint(s). Provacative testing using the Hoang's facet loading test Left side Directly before the block VAS (0-10) = 3/10 5 minutes after the block VAS (0-10) = 0/10 Percentage relief obtained with this diagnostic block 100% Any improved physical functioning directly after the blocks? Range of motion, ambulation Based on the medial branches blocked today, if the patient meets insurance [facility] for radiofrequency, the treatment should result in the denervation of the left L4-5 and L5-S1 facet joint nerves. We would expect to denervate a total of 2 facets during the radiofrequency ablation.
[2022-09-11 13:30] VITALS: BP 144/75; PULSE 70; RESP 16; O2SAT 99
== END 2022-09-11 13:31 | disposition home or self-care (01) ==
LOC: RAD 12:29
PROVIDERS: PCP Internal Medicine; Referring Provider Anesthesiology; Visit Provider Anesthesiology
DX: M47.816 Spondylosis without myelopathy or radiculopathy, lumbar region (principal)
CPT/HCPCS: 64493; 64494

== ENCOUNTER 2022-09-25 20:43 | Emergency (ER) | payer MEDICARE, SELFPAY ==
[2020-09-03 05:27] VITALS: BMI 23.1
[2022-09-25 20:53] VITALS: BP 135/76; PULSE 68; RESP 16; TEMP 36.3; O2SAT 98; BMI 21.4
--- NOTE | 2022-09-25 21:30 | ED.LOWEXIN ---
HPI - Extremity Injury (Lower) General Chief Complaint: Extremity Injury, Lower Stated Complaint: rt grt toe injury Time Seen by Provider: 09/25/22 21:20 Source: patient Mode of arrival: Ambulatory History of Present Illness HPI Narrative: Patient is a 72-year-old female who is here for evaluation of a right great toe injury. She states that she has issues with her toenails at baseline. She states they are very thickened brittle. States that she injured her right great toe when someone stepped on it. It did pull the toenail back. She tried to soak it at home and then cut a portion of it off however was quite a bit more painful than what she thought. No other injuries from the event. Related Data Home Medications Medication Instructions Recorded Confirmed bupropion HCl 100 mg tablet,12 hr 100 mg PO BID 09/03/20 09/19/22 sustained-release rosuvastatin 5 mg tablet 2.5 mg DAILY 09/03/20 09/19/22 omeprazole 20 mg capsule,delayed 20 mg PO DAILY 06/03/22 09/19/22 release levothyroxine 88 mcg tablet 88 mcg PO DAILY 07/01/22 09/19/22 Previous Rx's Medication Instructions Recorded epinephrine 0.3 mg/0.3 mL 0.3 mg (0.3 mL) IM Q5-15M PRN 09/03/20 injection, auto-injector anaphylaxis #2 ea meloxicam 15 mg tablet 15 mg PO DAILY #30 tabs 09/24/22 Allergies Allergy/AdvReac Type Severity Reaction Status Date / Time egg Allergy Mild Gastrointestinal Verified 09/19/22 13:10 Upset lactose AdvReac Mild Verified 09/19/22 13:10 Review of Systems Musculoskeletal Musculoskeletal: Reports system reviewed and no additional complaints, except as documented Integumentary/Breasts Skin/Breast: Reports system reviewed and no additional complaints, except as documented Patient History Medical History Acquired hypothyroidism Cluneal neuropathy Generalized anxiety disorder GERD without esophagitis History of colonic polyps History of esophageal stricture Low back pain Lumbar radiculopathy Lumbar spondylosis Mixed hyperlipidemia Primary osteoarthritis involving multiple joints Surgical History History of esophageal hernia repair Family History Mother Myocardial infarct Father Surgical complication Social History details: Single, lives alone, no children, retired financial household members: friend(s) Smoking Status: Former smoker Smoking Status: Former smoker alcohol intake frequency: 0-2 drinks per day Substance Use Type: does not use Exam Initial Vital Signs Initial Vital Signs: Vital Signs Temperature 97.3 F L 09/25/22 20:53 Pulse Rate 68 09/25/22 20:53 Respiratory Rate 16 09/25/22 20:53 Blood Pressure 135/76 09/25/22 20:53 Pulse Oximetry 98 09/25/22 20:53 Oxygen Delivery Method Room Air 09/25/22 20:53 Skin General: no rashes or lesions noted Extrem Other: Patient does have an avulsion of the right great toenail and it is pulled back from the nail bed. There was some concern about a nail bed injury however when the toenail was removed the nail bed shows no injury. Procedures Nerve Block Nerve Block 1: Local Anesthetic: lidocaine 1% Amount of anesthesia used (mL): 6 Side: right Nerve Blocks: digital (Right great toe) Procedure Successful: Yes Patient Tolerated Procedure: Well and No complications Course Orders Ordered: Discontinued Medications Hydrocodone Bitart/Acetaminophen (Hydrocodone/Acet 5/325 Prepack) 1 bottle MISC SEEINSTR ONE Stop: 09/25/22 22:27 Last Admin: 09/25/22 22:34 Dose: 1 bottle Documented By: AGGIE Bacitracin (Bacitracin Oint 0.9 Gm Pckt) 1 applic TOP NOW ONE Stop: 09/25/22 22:27 Last Admin: 09/25/22 22:34 Dose: 1 applic Documented By: AGGIE Lidocaine HCl (Lidocaine 1% 20 Ml) 20 ml INJ INTRA-OP ONE Stop: 09/25/22 21:30 Last Admin: 09/25/22 21:32 Dose: 20 ml Documented By: AGGIE Vital Signs Vital signs: Vital Signs - 8 hr 09/25/22 20:53 Temperature 97.3 F L Pulse Rate 68 Respiratory Rate 16 Blood Pressure 135/76 Pulse Oximetry 98 Oxygen Delivery Method Room Air MDM - Extremity Injury (Lower) MDM Narrative Medical decision making narrative: Because of the initial concern about a nail bed injury I discussed with the patient removing the toenail completely to evaluate for this. Patient expressed understanding and agreement. A digital block was performed and the toenail was removed without issue. Upon further evaluation there was no nail bed injury requiring any sort of suturing. Patient is able to stand and ambulate. Feel that we can hold on any x-rays. She was given care instructions and return precautions. She expressed understanding and agreement. Discharge Plan Departure Patient Disposition: Home Clinical Impression: Injury of toenail of right foot Activity Restrictions/Additional Instructions: You can continue to put topical antibiotic ointment over the area. You can shower like normal. You can walk like normal. Contact your primary doctor for follow-up. Return to the emergency department for new or worsening symptoms. Prescriptions: No Action meloxicam 15 mg tablet 15 mg PO DAILY Qty: 30 2RF levothyroxine 88 mcg tablet 88 mcg PO DAILY bupropion HCl 100 mg tablet sustained-release 12 hr 100 mg PO BID rosuvastatin 5 mg tablet 2.5 mg DAILY epinephrine 0.3 mg/0.3 mL auto-injector 0.3 mg IM Q5-15M PRN (Reason: anaphylaxis) Qty: 2 0RF Rx Instructions: do not exceed 3 doses per episode omeprazole 20 mg capsule,delayed release(DR/EC) 20 mg PO DAILY Referrals: Tanner Piedra MD [Primary Care Provider] - Stand Alone Forms: Patient Portal/API
[2022-09-25] MEDS: LIDOCAINE 1% 20 ML INJ (21:32)
[2022-09-25] MEDS: HYDROCODONE/ACET 5/325 PREPACK 1 BOTTLE MISC (22:34)
[2022-09-25] MEDS: BACITRACIN OINT 0.9 GM PCKT 1 APPLIC TOP (22:34)
--- NOTE | 2022-09-25 22:49 | PC.NURSE ---
right great toe dressed with bacitracin, non adherent telfa pad and guaze. bleeding controlled. patient tolerated well. provider aware.
== END 2022-09-25 22:51 | disposition home or self-care (01) ==
PROVIDERS: Emergency Provider Emergency Medicine; PCP Internal Medicine
DX: S91.201A Unspecified open wound of right great toe with damage to nail, initial encounter (principal)
CPT/HCPCS: 64450; 99282; 99283

== ENCOUNTER 2022-10-16 08:11 | Outpatient (CLI) | payer MEDICARE, SELFPAY ==
[2020-09-03 05:27] VITALS: BMI 23.1
[2022-10-16] VITALS (8 sets, daily range): BP systolic 137–167; BP diastolic 68–88; PULSE 63–73; RESP 15–20; TEMP 36.2; O2SAT 97–100
--- NOTE | 2022-10-16 08:13 | DI.RAD.S_ITS ---
PROCEDURE: PAIN L/SI FACET INJ/BLK 1STL INDICATIONS: SPONDYLOSIS COMPARISON: [facility], , PAIN L/SI FACET INJ/BLK 1STL, 09/11/2022, 13:06. FINDINGS: Fluoroscopic spot filming was performed to verify placement of spinal needles on the left at the L3, L4, and L5 levels, as labeled on the films. Appropriate location of the needle tips was confirmed by injection of iodinated contrast. IMPRESSION: Intraprocedural examination demonstrating appropriate positions of the needles. Dictated by: Ramon Mary M.D. on 10/16/2022 at 9:58 Approved by: Ramon Mary M.D. on 10/16/2022 at 9:58
[2022-10-16] MEDS: MIDAZOLAM 2 MG/2 ML VIAL 1 MG IV (08:39)
[2022-10-16] MEDS: IOPAMIDOL 15 ML VIAL 3 ML INJ (08:42)
[2022-10-16] MEDS: LIDOCAINE 2% INJ MDV 20ML 5 ML INJ (08:42)
--- NOTE | 2022-10-16 08:54 | P.PCN_ITS ---
Date/Time/Diagnoses Date of procedure: 10/16/22 Time of procedure: 08:30 Procedure Notes Physician: Levon Gardner Total Fluoroscopy time (seconds): 13 Total sedation minutes: 11 Procedure in detail & Post-procedure care: Left L3, 4, 5 Lumbar Medial Branch Blocks Indications: Bibi is presenting for treatment of lumbar spondylosis with low back pain. Preoperative diagnosis: Lumbar spondylosis Postoperative diagnosis: Same Pre-procedure History: Patient demonstrates today moderate to severe non- radicular back pain without neurologic deficit aggravated by hyperextension yes Back pain greater than leg pain? yes Patient today has tenderness over the suspected joint(s) yes History of post-traumatic injury? no Hypertrophic arthropathy yes Back pain associated with suspected motion segment instability, hypermobility or pseudoarthrosis no Pre-testing pain score (VAS): 6/10 Focused Examination: Ax3 Mood and affect are normal Vital Signs: VSS ASA: 2 Consent: Following review of allergies and potential side effects/complications, including, but not necessarily limited to, infection, allergic reaction, local tissue breakdown, stroke, temporary or permanent nerve injury, paralysis, and possible , the patient indicated that they understood and agreed to proceed.? An informed consent document was signed by the patient, witnessed by a nurse and placed in the patient's chart.? Additionally, other treatment options including medications and physical therapy were reviewed with the patient. All questions were answered. Site was then marked. Anesthesia: After review of previous anesthetic history and IV conscious sedation, the patient was deemed safe to proceed with today's procedure with IV conscious sedation. IV sedation was accomplished with midazolam 1 mg administered by the RN after order by Dr. Gardner. Sedation was titrated to patient comfort during the course of the procedure. Patient remained responsive to all verbal commands. Position: Prone Monitoring: NIBP, Pulse oximetry, 3 lead EKG Needle used: 22 ga 3.5 inch spinal needle Contrast: Isovue 300M Injectate: 2% lidocaine 1 mL per site Procedure: The patient was brought into the procedure room and positioned into the prone position. Skin was prepped with a Chloraprep solution, allowed to air dry, and then draped in sterile fashion.? The left L4-5 and L5-S1 facet joints were visually identified with fluoroscopy. Lidocaine 1% was used to anesthetize the skin over each target destination with a 25ga needle. A 22 ga, 3.5 inch spinal needle was advanced to the location of the medial branch at the junction of the superior articular process and the transverse process at L4,5 and the base of the SAP of the sacrum using intermittent fluoroscopy in the AP view. Isovue 300M contrast 0.2ml was injected at each level outlining the medial borders for each level and the base of the SAP of the sacrum in the AP and lateral views. There was no evidence of vascular or intrathecal uptake. The above injectate was slowly injected at each target destination. Post Procedure: Patient was taken to the recovery and monitored. The patient was provided a Pain Log to continue to record the patient's response to the target- specific procedure prior to the patient's follow-up visit with the referring physician. Patient was stable upon discharge. Detailed post procedure instructions were provided. Patient was asked to call in the event of worsening pain, fever, weakness, numbness or bladder or bowel incontinence. Postoperatively, today patient demonstrates the following changes with hyperextension and with tenderness over the suspected joint(s). Provacative testing using the Hoang's facet loading test Left side Directly before the block VAS (0-10) = 6/10 5 minutes after the block VAS (0-10) = 2/10 Percentage relief obtained with this diagnostic block 66% Any improved physical functioning directly after the blocks? Range of motion Based on the medial branches blocked today, if the patient meets insurance criteria for radiofrequency, the treatment should result in the denervation of the left L4-5 and L5-S1 facet joint nerves. We would expect to denervate a total of 2 facets during the radiofrequency ablation.
== END 2022-10-16 09:12 | disposition home or self-care (01) ==
LOC: RAD 08:12
PROVIDERS: PCP Internal Medicine; Referring Provider Anesthesiology; Visit Provider Anesthesiology
DX: M47.816 Spondylosis without myelopathy or radiculopathy, lumbar region (principal)
CPT/HCPCS: 64493; 64494; 99152; J2250

== ENCOUNTER → 2022-11-06 10:47 | Outpatient (CLI) | payer MEDICARE, SELFPAY ==
[2022-10-16 15:12] VITALS: BMI 23.1
[2022-11-06 12:42] LABS: Hematocrit 36.3 % (36-46); Hemoglobin 12.4 g/dL (12.0-16.0); Mean Corpuscular HGB Conc 34.1 % (30-36); Mean Corpuscular Hemoglobin 31.6 PG (26-34); Mean Corpuscular Volume 92.8 fL (80-100); Platelet Count 217 X10^3/uL (150-400); Red Blood Cell Count 3.91 X10^6/uL (4.0-5.2); White Blood Cell Count 4.7 X10^3/uL (4.5-11.0)
[2022-11-06 13:07] LABS: Alanine Aminotransferase 24 IU/L (<35); Albumin 4.3 g/dL (3.5-5.0); Albumin Globulin Ratio 1.5 (1.0-2.8); Alkaline Phosphatase 48 U/L (38-126); Aspartate Aminotransferase 29 IU/L (14-36); Bilirubin Total 0.5 mg/dL (0.2-1.3); Blood Urea Nitrogen 17 mg/dL (7-17); Calcium 9.6 mg/dL (8.4-10.2); Carbon Dioxide 29 mmol/L (22-32); Chloride 102 mmol/L (98-107); Cholesterol 139 mg/dL (140-199); Estimated Glomerular Filt Rate > 60 mL/min (>60); Globulin 2.9 g/dL (1.7-4.1); Glucose 90 mg/dL (80-110); HDL Cholesterol 81 mg/dL (40-60); HEMOLYSIS < 15 (0-50); LDL Cholesterol Calculated 40 mg/dL (<100); Potassium 4.3 mmol/L (3.4-5.1); Sodium 138 mmol/L (137-145); Total Protein 7.2 g/dL (6.3-8.2); Triglycerides 92 mg/dL (35-150)
[2022-11-06 13:29] LABS: TSH w/ Reflex to FT4 0.15 uIU/mL (0.47-4.68)
[2022-11-06 14:41] LABS: Free T4, Direct Thyroxine 1.48 ng/dL (0.78-2.19)
== END ==
PROVIDERS: PCP Internal Medicine; Referring Provider Internal Medicine; Visit Provider Internal Medicine
DX: E03.9 Hypothyroidism, unspecified (principal); E78.2 Mixed hyperlipidemia
CPT/HCPCS: 36415; 80053; 80061; 84439; 84443; 85027

== ENCOUNTER 2022-11-20 13:06 | Outpatient (CLI) | payer MEDICARE, SELFPAY ==
[2022-10-16 15:12] VITALS: BMI 23.1
[2022-11-20] VITALS (11 sets, daily range): BP systolic 132–149; BP diastolic 65–97; PULSE 59–600; RESP 13–20; TEMP 36.2; O2SAT 98–100
--- NOTE | 2022-11-20 13:09 | DI.RAD.S_ITS ---
PROCEDURE: PAIN L/S MED/LAT N RFA INDICATIONS: Spondylosis COMPARISON: [facility], , PAIN L/SI FACET INJ/BLK 1STL, 10/16/2022, 8:41. FINDINGS: Fluoroscopic spot filming was performed to verify placement of spinal needles on both sides along the courses of the L3, L4, and L5 nerve roots, as labeled on the films. IMPRESSION: Images during rhizotomy within normal limits. Dictated by: Ramon Mary M.D. on 11/20/2022 at 17:53 Approved by: Ramon Mary M.D. on 11/20/2022 at 17:53
[2022-11-20] MEDS: MIDAZOLAM 2 MG/2 ML VIAL 1 MG IV ×2 (14:20→14:34)
[2022-11-20] MEDS: LIDOCAINE 2% INJ MDV 20ML 5 ML INJ (14:23)
[2022-11-20] MEDS: DEXAMETHASONE 10 MG/ML VIAL INJ (14:23)
[2022-11-20] MEDS: BUPIVACAINE 0.5% (PF) 10 ML VIAL 5 ML INJ (14:23)
--- NOTE | 2022-11-20 16:36 | P.PCN_ITS ---
Date/Time/Diagnoses Date of procedure: 11/20/22 Time of procedure: 14:00 Procedure Notes Physician: Levon Gardner Total Fluoroscopy time (seconds): 18 Total sedation minutes: 25 Procedure in detail & Post-procedure care: Left L3, 4, 5 Lumbar Medial Branch Radio Frequency Ablation Indications: Bibi presents for treatment of lumbar spondylosis with low back pain. Preoperative diagnosis: Lumbar spondylosis Postoperative diagnosis: Same Focused Examination: Ax3 Mood and affect are normal Vital Signs: VSS ASA: 2 Consent: Following review of allergies and potential side effects/complications, including, but not necessarily limited to, infection, allergic reaction, local tissue breakdown, stroke, temporary or permanent nerve injury, paralysis, and possible , the patient indicated that they understood and agreed to proceed.? An informed consent document was signed by the patient, witnessed by a nurse and placed in the patient's chart.? Additionally, other treatment options including medications and physical therapy were reviewed with the patient. All questions were answered. Site was then marked. Position: Prone Monitoring: NIBP, Pulse oximetry, 3 lead EKG Needle used: 18 guage, 100 mm, 10 mm active tip Anesthesia: Local with IV sedation. After review of previous anesthetic history and IV conscious sedation, the patient was deemed safe to proceed with today's procedure with IV conscious sedation. IV sedation was accomplished with midazolam 2 mg administered by the RN after order by Dr. Gardner. Sedation was titrated to patient comfort during the course of the procedure. Patient remained responsive to all verbal commands. Procedure: The patient was brought into the procedure room and positioned into the prone position. Skin was prepped with a Chloraprep solution, allowed to air dry, and then draped in sterile fashion.? The left L4-5 and L5-S1 facet joints were visually identified with fluoroscopy. Lidocaine 1% was used to anesthetize the skin over each target destination with a 25ga needle. An 18 ga, 100 mm RFA needle with a 10 mm active tip was advanced to the location of the medial branch at the junction of the superior articular process and the transverse process at L4,5 and the base of the SAP of the sacrum using intermittent fluoroscopy in the oblique view with caudal tilt. AP and lateral radiographs were taken to confirm proper needle placement. No paresthesias were noted. The stylet was removed and the radiofrequency probe was inserted through the cannula. Each level was individually tested.? Motor stimulation up to 2V elicited multifidus twitching in the lumbar spine. There was no motor stimulation in the lower extremities. After negative aspiration, 1ml of 2% lidocaine was injected at each of the levels and radiofrequency denervation carried out using 80 degrees Celsius for 90 seconds. The needles were then rotated 90 degrees and a second ablation was performed at 80 degrees Celsius for 90 seconds. After ablation, a mixture of 10 mg dexamethasone with 0.5% bupivacaine 2 mL was injected in equal amounts among the sites (1 mL per site). At the end of the procedure the needles were withdrawn and Band-Aids were applied for a dressing. This procedure is expected to denervate the left L4-5 and L5-S1 facet joints. Post Procedure: Patient was taken to the recovery and monitored. The patient was provided a Pain Log to continue to record the patient's response to the target- specific procedure prior to the patient's follow-up visit with the referring physician. Patient was stable upon discharge. Detailed post procedure instructions were provided. Patient was asked to call in the event of worsening pain, fever, weakness, numbness or bladder or bowel incontinence. Complications: None
== END 2022-11-20 15:09 | disposition home or self-care (01) ==
PROVIDERS: PCP Internal Medicine; Referring Provider Anesthesiology; Visit Provider Anesthesiology
DX: M47.816 Spondylosis without myelopathy or radiculopathy, lumbar region (principal)
CPT/HCPCS: 64635; 64636; 99152; 99153; J1100; J2250

== ENCOUNTER → 2023-03-21 12:15 | Outpatient (CLI) | payer MEDICARE, SELFPAY ==
[2022-10-16 15:12] VITALS: BMI 23.1
[2023-03-21 14:22] LABS: TSH w/ Reflex to FT4 1.82 uIU/mL (0.47-4.68)
== END ==
LOC: LAB 12:16
PROVIDERS: PCP Internal Medicine; Referring Provider Internal Medicine; Visit Provider Internal Medicine
DX: E03.9 Hypothyroidism, unspecified (principal)
CPT/HCPCS: 36415; 84443

== ENCOUNTER 2024-01-22 08:27 | Emergency (ER) | payer MEDICARE, SELFPAY ==
[2022-10-16 15:12] VITALS: BMI 23.1
[2024-01-22 08:36] VITALS: BP 186/86; PULSE 66; RESP 16; TEMP 36.9; O2SAT 97; BMI 21.4
--- NOTE | 2024-01-22 08:45 | ED.EXTPRO ---
HPI - Extremity Problem General Chief complaint: Extremity Problem,Nontraumatic Stated complaint: L arm pain Time Seen by Provider: 01/22/24 08:29 Source: patient Mode of arrival: Ambulatory History of Present Illness HPI Narrative: Patient was a 73-year-old female who is here for evaluation of approximately 10 days of pain that starts from her left elbow and goes down the ulnar aspect of her left arm and includes her left little finger and ring finger. She denies any specific trauma. She states that it is a dull pain. It was somewhat worse with movement of the elbow and also keeping her arm elevated. She has been trying anti-inflammatories at home. Had a difficult time sleeping last night because of the pain. No chest pain or shortness of breath. No neck pain. At 1 point she thought that it did extend up past the elbow but now feels like it is from the elbow to her wrist/hand. She noticed a bruise over her left elbow just within the past 24-48 hours. Related Data Previous Rx's Medication Instructions Recorded celecoxib 200 mg capsule (Celebrex) 200 mg PO ONCE #2 caps 10/22/22 bupropion HCl 100 mg tablet,12 hr 100 mg PO BID #180 ea 02/19/23 sustained-release levothyroxine 75 mcg tablet 75 mcg PO DAILY #90 tabs 02/19/23 rosuvastatin 5 mg tablet 2.5 mg (1/2 x 5 mg) PO DAILY #45 02/19/23 tabs omeprazole 20 mg capsule,delayed 20 mg PO DAILY #90 caps 02/20/23 release tizanidine 2 mg tablet 2 mg PO BEDTIME PRN muscle 02/20/23 spasticity #60 tabs meloxicam 15 mg tablet 15 mg PO DAILY #90 tabs 12/29/23 prednisone 20 mg tablet 20 mg PO DAILY 6 days #6 tabs 01/22/24 Allergies Allergy/AdvReac Type Severity Reaction Status Date / Time egg Allergy Mild Gastrointestinal Verified 01/22/24 08:38 Upset lactose AdvReac Mild Verified 01/22/24 08:38 Review of Systems Review of Systems Narrative: See HPI Patient History Medical History Myofascial pain Lumbar radiculopathy History of colonic polyps Primary osteoarthritis involving multiple joints Acquired hypothyroidism GERD without esophagitis Generalized anxiety disorder Mixed hyperlipidemia Lumbar spondylosis Low back pain Cluneal neuropathy History of esophageal stricture Surgical History History of esophageal hernia repair Family History Mother Myocardial infarct Father Surgical complication Social History details: Single, lives alone, no children, retired financial household members: friend(s) Smoking Status: Former smoker Smoking Status: Former smoker alcohol intake frequency: 0-2 drinks per day Exam Initial Vital Signs Initial Vital Signs: Vital Signs Temperature 98.5 F 01/22/24 08:36 Pulse Rate 66 01/22/24 08:36 Respiratory Rate 16 01/22/24 08:36 Blood Pressure 186/86 H 01/22/24 08:36 Pulse Oximetry 97 01/22/24 08:36 Oxygen Delivery Method Room Air 01/22/24 08:36 Cardio Pulses: radial pulses present on the left Back/Spine/Pelvis Cervical Spine: No cervical muscular tenderness, No cervical spasm and No cervical spinal tenderness Skin Other: Superficial bruise over the lateral epicondyle of the elbow. Neuro Other: Patient reports tingling sensation along the ulnar aspect of the left arm that extends down to the little finger in the ulnar aspect of the ring finger on the left. Course Orders Ordered: Discontinued Medications Prednisone (Prednisone 20 Mg Tablet) 20 mg PO NOW ONE Stop: 01/22/24 08:46 Vital Signs Vital signs: Vital Signs - 8 hr 01/22/24 08:36 Temperature 98.5 F Pulse Rate 66 Respiratory Rate 16 Blood Pressure 186/86 H Pulse Oximetry 97 Oxygen Delivery Method Room Air MDM - Extremity (Nontraumatic) MDM Narrative Medical decision making narrative: Despite being the discomfort in the left arm I have very low suspicion that this is ACS. I do suspect that this is an ulnar nerve inflammation. Unsure whether or not there was a specific trauma to the left elbow however there is a bruise over this area. She has been trying anti-inflammatories. I do feel we can hold on radiologic studies as I have low suspicion that this is a fracture. She was full range of motion of her left shoulder left elbow left wrist. Will discharge home on a short course of prednisone. We discussed other conservative measures. We discussed follow-up instructions. Discussed return precautions. She expressed understanding and agreement with plan. Discharge Plan Departure Patient Disposition: Home Clinical Impression: Ulnar nerve impingement Instructions: How To Perform RICE (Rest, Ice, Compress, Elevate) Activity Restrictions/Additional Instructions: Continue to take all of your medications as directed. I do recommend you contact your primary care doctor for follow-up. Return to the emergency department for new or worsening symptoms. Prescriptions: New prednisone 20 mg tablet 20 mg PO DAILY 6 Days Qty: 6 0RF No Action bupropion HCl 100 mg tablet sustained-release 12 hr 100 mg PO BID Qty: 180 3RF levothyroxine 75 mcg tablet 75 mcg PO DAILY Qty: 90 3RF rosuvastatin 5 mg tablet 2.5 mg PO DAILY Qty: 45 3RF omeprazole 20 mg capsule,delayed release(DR/EC) 20 mg PO DAILY Qty: 90 3RF meloxicam 15 mg tablet 15 mg PO DAILY Qty: 90 1RF celecoxib [Celebrex] 200 mg capsule 200 mg PO ONCE Qty: 2 0RF Rx Instructions: Take 2 capsules, 4 hours prior to procedure. tizanidine 2 mg tablet 2 mg PO BEDTIME PRN (Reason: muscle spasticity) Qty: 60 1RF Referrals: Tanner Piedra MD [Primary Care Provider] - Stand Alone Forms: Patient Portal/API/Survey
[2024-01-22] MEDS: predniSONE 20 MG TABLET PO (08:52)
== END 2024-01-22 08:54 | disposition home or self-care (01) ==
PROVIDERS: Emergency Provider Emergency Medicine; PCP Internal Medicine
DX: G56.22 Lesion of ulnar nerve, left upper limb (principal)
CPT/HCPCS: 99283

== ENCOUNTER 2024-01-29 09:05 | Emergency (ER) | payer MEDICARE, SELFPAY ==
[2022-10-16 15:12] VITALS: BMI 23.1
[2024-01-29 09:06] VITALS: BP 162/88; PULSE 64; RESP 14; TEMP 36.2; O2SAT 98; BMI 21.4
[2024-01-29 09:13] VITALS: PULSE 65
--- NOTE | 2024-01-29 09:15 | PC.NURSE ---
Pt reports going home on steroids; pain got better in left arm a well as numbness. Pt states she tried to get ahold of her PCP but was told they were out of town and to return to the ER if her symptoms are not better.
--- NOTE | 2024-01-29 09:37 | ED.EXTPRO ---
HPI - Extremity Problem General Chief complaint: Extremity Problem,Nontraumatic Stated complaint: L arm pain Time Seen by Provider: 01/29/24 09:07 Source: patient Mode of arrival: Ambulatory History of Present Illness HPI Narrative: Patient is a 73-year-old female who I evaluated in the emergency department approximately 1 week ago for left arm discomfort. She was diagnosed with an ulnar nerve impingement based on her physical exam. Was sent home with steroids. States she took the steroids. Her symptoms did improve somewhat but did not completely resolve. Her last dose was yesterday and she reports now having the return of the discomfort. No chest pain or shortness of breath. No neck pain although she was having some shoulder discomfort. She states that the little finger on her left hand is numb. 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 She describes a dull ache pain in the triceps on the left. Related Data Previous Rx's Medication Instructions Recorded celecoxib 200 mg capsule (Celebrex) 200 mg PO ONCE #2 caps 10/22/22 bupropion HCl 100 mg tablet,12 hr 100 mg PO BID #180 ea 02/19/23 sustained-release levothyroxine 75 mcg tablet 75 mcg PO DAILY #90 tabs 02/19/23 rosuvastatin 5 mg tablet 2.5 mg (1/2 x 5 mg) PO DAILY #45 02/19/23 tabs tizanidine 2 mg tablet 2 mg PO BEDTIME PRN muscle 02/20/23 spasticity #60 tabs meloxicam 15 mg tablet 15 mg PO DAILY #90 tabs 12/29/23 omeprazole 20 mg capsule,delayed 20 mg PO DAILY #90 caps 01/26/24 release hydrocodone 5 mg-acetaminophen 325 1 tab PO Q8H PRN pain #10 tabs 01/29/24 mg tablet prednisone 20 mg tablet 20 mg PO DAILY 6 days #6 tabs 01/29/24 prednisone 20 mg tablet See Rx Instructions .Route 01/29/24 .COMPLEX #25 tabs Allergies Allergy/AdvReac Type Severity Reaction Status Date / Time egg Allergy Mild Gastrointestinal Verified 01/29/24 09:11 Upset lactose AdvReac Mild Verified 01/29/24 09:11 Review of Systems Review of Systems Narrative: See HPI Patient History Medical History Myofascial pain Lumbar radiculopathy History of colonic polyps Primary osteoarthritis involving multiple joints Acquired hypothyroidism GERD without esophagitis Generalized anxiety disorder Mixed hyperlipidemia Lumbar spondylosis Low back pain Cluneal neuropathy History of esophageal stricture Surgical History History of esophageal hernia repair Family History Mother Myocardial infarct Father Surgical complication Social History details: Single, lives alone, no children, retired financial household members: friend(s) Smoking Status: Former smoker Smoking Status: Former smoker alcohol intake frequency: 0-2 drinks per day Exam Initial Vital Signs Initial Vital Signs: Vital Signs Temperature 97.1 F L 01/29/24 09:06 Pulse Rate 64 01/29/24 09:06 Respiratory Rate 14 01/29/24 09:06 Blood Pressure 162/88 H 01/29/24 09:06 Pulse Oximetry 98 01/29/24 09:06 Oxygen Delivery Method Room Air 01/29/24 09:06 Cardio Pulses: radial pulses present on the left Back/Spine/Pelvis Other: No discomfort to palpation of the left paraspinal region cervical. Neuro Other: Decreased sensation to light touch ulnar aspect left arm Extrem Other: No gross deformities. Full range of motion of left shoulder and left elbow. Course Orders Ordered: ED Orders 01/29/24 09:37 EKG-12 Lead Stat 01/29/24 09:47 Complete Blood Count AUTO DIFF Stat Comprehensive Metabolic Panel Stat Lipase Stat Troponin & CK Cardiac Panel Stat Vital Signs Vital signs: Vital Signs - 8 hr 01/29/24 09:06 01/29/24 09:13 Temperature 97.1 F L Pulse Rate 64 Pulse Rate [Left Radial] 65 Respiratory Rate 14 Blood Pressure 162/88 H Pulse Oximetry 98 Oxygen Delivery Method Room Air MDM - Extremity (Nontraumatic) Lab Data 01/29/24 09:47 01/29/24 09:47 Labs: Lab Results 01/29/24 Range/Units 09:47 WBC 6.6 (4.5-11.0) X10^3/uL RBC 3.96 L (4.0-5.2) X10^6/uL Hgb 12.5 (12.0-16.0) g/dL Hct 37.8 (36-46) % MCV 95.6 (80-100) fL MCH 31.5 (26-34) PG MCHC 33.0 (30-36) % RDW 13.5 (11.6-14.8) % Plt Count 247 (150-400) X10^3/uL Neut % (Auto) 28.0 L (50-75) % Lymph % (Auto) 58.0 H (25-40) % Avery % (Auto) 8.6 (3-14) % Eos % (Auto) 4.7 H (2-4) % Baso % (Auto) 0.7 (0-2) % Neut # (Auto) 1800 (9665-0766) /uL Lymph # (Auto) 3800 (8072-5258) /uL Avery # (Auto) 600 (0-900) /uL Eos # (Auto) 300 (0-450) /uL Baso # (Auto) 0 (0-100) /uL Sodium 136 L (137-145) mmol/L Potassium 3.8 (3.4-5.1) mmol/L Chloride 104 (98-107) mmol/L Carbon Dioxide 26 (22-32) mmol/L BUN 22 H (7-17) mg/dL Creatinine 0.81 (0.52-1.04) mg/dL Estimated GFR > 60 (>60) mL/min BUN/Creatinine Ratio 27.2 H (6-22) Glucose 97 (80-110) mg/dL Calcium 9.2 (8.4-10.2) mg/dL Total Bilirubin 0.6 (0.2-1.3) mg/dL AST 32 (14-36) IU/L ALT 25 (<35) IU/L Alkaline Phosphatase 55 (38-126) U/L Total Creatine Kinase 148 H (30-135) U/L Troponin I < 0.012 (0.01-0.034) ng/mL Total Protein 6.6 (6.3-8.2) g/dL Albumin 4.0 (3.5-5.0) g/dL Globulin 2.6 (1.7-4.1) g/dL Albumin/Globulin Ratio 1.5 (1.0-2.8) Lipase 171 (23-300) U/L ECG Data Attestation EKG: I personally reviewed and interpreted this ECG as follows: Interpretation: Sinus bradycardia Ventricular rate of 58 Normal axis Normal QRS Normal QTC No ST T wave changes MDM Narrative Medical decision making narrative: Her exam today is very similar to what it was the last time I evaluated her about 1 week ago however the small bruise that was located on her upper arm has since resolved. She was vascularly intact. Her EKG is unremarkable. Troponins are negative. I have low suspicion this is ACS. She does not have an overt cervical spine discomfort although she was having some upper arm pain. I do feel that this is musculoskeletal. She seemed to get some improvement from the steroids so will put her on a longer course of steroids. Pain medication for sleep and information for referrals to see Orthopedic surgery. Discharge Plan Departure Patient Disposition: Home Clinical Impression: Ulnar nerve impingement Instructions: How To Perform RICE (Rest, Ice, Compress, Elevate) Activity Restrictions/Additional Instructions: Continue to take all of your medications as directed. Contact the Orthopedic surgery Department with the number provided below to start the process for a referral for an evaluation. Also contact your primary doctor. Return to the emergency department for new symptoms. Prescriptions: New hydrocodone-acetaminophen 5-325 mg tablet 1 tab PO Q8H PRN (Reason: pain) Qty: 10 0RF prednisone 20 mg tablet See Rx Instructions .ROUTE .COMPLEX Qty: 25 0RF Rx Instructions: 2T PO QD for 7 days then 1T PO QD for 7 D then 1/2 T PO QD for 7 days No Action bupropion HCl 100 mg tablet sustained-release 12 hr 100 mg PO BID Qty: 180 3RF levothyroxine 75 mcg tablet 75 mcg PO DAILY Qty: 90 3RF rosuvastatin 5 mg tablet 2.5 mg PO DAILY Qty: 45 3RF meloxicam 15 mg tablet 15 mg PO DAILY Qty: 90 1RF omeprazole 20 mg capsule,delayed release(DR/EC) 20 mg PO DAILY Qty: 90 3RF prednisone 20 mg tablet 20 mg PO DAILY 6 Days Qty: 6 0RF celecoxib [Celebrex] 200 mg capsule 200 mg PO ONCE Qty: 2 0RF Rx Instructions: Take 2 capsules, 4 hours prior to procedure. tizanidine 2 mg tablet 2 mg PO BEDTIME PRN (Reason: muscle spasticity) Qty: 60 1RF Referrals: Tanner Piedra MD [Primary Care Provider] - Jamil Diehl MD [Physician] - Stand Alone Forms: Patient Portal/API/Survey
--- NOTE | 2024-01-29 09:43 | EKG_ITS ---
[address] [address] Test Date: 2024-01-29 Pat Name: Bibi Arboleda Department: [facility] Room: Gender: Female [employer] Supervisor: CARLOS : 1950 Requested By: Order Number: [id number] Reading MD: Charbel Good Measurements Intervals [place] Rate: 58 P: -20 W[place]: 176 QRS: 9 QRSD: 74 T: 24 QT: 452 QTc: 443 Interpretive Statements Sinus bradycardia Septal infarct , age undetermined Electronically Signed On 01-29-2024 14:50:20 PST by Charbel Good
[2024-01-29 09:58] LABS: Add Manual Diff / Slide Review NO; Basophils Absolute Auto 0 /uL (0-100); Basophils Percent Auto 0.7 % (0-2); Eosinophils Absolute Auto 300 /uL (0-450); Eosinophils Percent Auto 4.7 % (2-4); Hematocrit 37.8 % (36-46); Hemoglobin 12.5 g/dL (12.0-16.0); Lymphocytes Absolute Auto 3800 /uL (1100-4500); Mean Corpuscular Hemoglobin 31.5 PG (26-34); Mean Corpuscular Volume 95.6 fL (80-100); Monocytes Absolute Auto 600 /uL (0-900); Monocytes Percent Auto 8.6 % (3-14); Neutrophils Absolute Auto 1800 /uL (1500-7000); Platelet Count 247 X10^3/uL (150-400); Red Blood Cell Count 3.96 X10^6/uL (4.0-5.2); Red Cell Distribution Width 13.5 % (11.6-14.8); White Blood Cell Count 6.6 X10^3/uL (4.5-11.0)
[2024-01-29 10:17] LABS: Alanine Aminotransferase 25 IU/L (<35); Albumin Globulin Ratio 1.5 (1.0-2.8); Alkaline Phosphatase 55 U/L (38-126); Aspartate Aminotransferase 32 IU/L (14-36); BUN Creatinine Ratio 27.2 (6-22); Bilirubin Total 0.6 mg/dL (0.2-1.3); Blood Urea Nitrogen 22 mg/dL (7-17); Calcium 9.2 mg/dL (8.4-10.2); Carbon Dioxide 26 mmol/L (22-32); Chloride 104 mmol/L (98-107); Creatine Kinase 148 U/L (30-135); Estimated Glomerular Filt Rate > 60 mL/min (>60); Globulin 2.6 g/dL (1.7-4.1); Glucose 97 mg/dL (80-110); HEMOLYSIS < 15 (0-50); Lipase 171 U/L (23-300); Potassium 3.8 mmol/L (3.4-5.1); Sodium 136 mmol/L (137-145); Total Protein 6.6 g/dL (6.3-8.2)
[2024-01-29 10:29] LABS: Troponin I < 0.012 ng/mL (0.01-0.034)
[2024-01-29 10:46] VITALS: PULSE 67; RESP 17; O2SAT 99
== END 2024-01-29 10:47 | disposition home or self-care (01) ==
PROVIDERS: Emergency Provider Emergency Medicine; PCP Internal Medicine
DX: G56.22 Lesion of ulnar nerve, left upper limb (principal); R20.0 Anesthesia of skin
CPT/HCPCS: 36415; 80053; 82550; 83690; 84484; 85025; 93005; 99281; 99284

== ENCOUNTER → 2024-02-13 10:04 | Outpatient (CLI) | payer MEDICARE, SELFPAY ==
[2022-10-16 15:12] VITALS: BMI 23.1
[2024-02-13 11:12] LABS: Cholesterol 162 mg/dL (140-199); Triglycerides 147 mg/dL (35-150)
[2024-02-13 11:23] LABS: HDL Cholesterol 111 mg/dL (40-60); LDL Cholesterol Calculated 22 mg/dL (<100)
== END ==
PROVIDERS: PCP Internal Medicine; Referring Provider Internal Medicine; Visit Provider Internal Medicine
DX: E78.2 Mixed hyperlipidemia (principal); E03.9 Hypothyroidism, unspecified
CPT/HCPCS: 36415; 80061; 84443